=== PATIENT | male | born 1950 | race Caucasian/White ===

== ENCOUNTER 2021-05-30 15:15 | Inpatient (IN) | payer MEDICARE, OTHER ==
[~2021-05-30] VITALS: Ht 180.3 cm; Wt 99.8 kg
[2021-05-30] VITALS (9 sets, daily range): BP systolic 134–165; BP diastolic 70–86
[2021-05-30 17:53] LABS: BASO # 0.1 10*3/uL (0.0-0.1); BASO % 0.4 % (0.0-1.0); EOS # 0.1 10*3/uL (0.0-0.4); EOS % 0.8 % (1.0-4.0); HEMATOCRIT 42.8 % (42.0-52.0); LYMPH # 1.7 10*3/uL (1.3-4.4); LYMPH % 12.6 % (27.0-41.0); MEAN CELL VOLUME 90.9 fl (80.0-94.0); MEAN CORPUSCULAR HGB 29.1 pg (27.0-31.0); MEAN PLATELET VOLUME 9.4 fl (9.6-12.3); MONO # 0.8 10*3/uL (0.1-1.0); MONO % 5.8 % (3.0-9.0); NEUT # 10.6 10*3/uL (2.3-7.9); PLATELET COUNT AUTOMATED 240 10*3/uL (130-400); RED BLOOD COUNT 4.71 10*6/uL (4.50-5.90); RED CELL DISTRI WIDTH 12.8 % (0-14.5); WHITE BLOOD COUNT 13.2 10*3/uL (4.8-10.8)
[2021-05-30 18:03] LABS: BUN 25 mg/dl (7-24); CHLORIDE 108 mmol/L (98-107); CREATININE 1.06 mg/dL (0.70-1.30); POTASSIUM 3.5 mmol/L (3.5-5.1); SODIUM 139 mmol/L (136-145)
[2021-05-30] MEDS ORDERED: PROSCAR5 M1 PO (20:26)
[2021-05-30] MEDS ORDERED: PANTOPRAZOLE SO40 MG PO (20:27)
[2021-05-30] MEDS ORDERED: POTASSIUM CHLO20 ME4 PO (20:27)
[2021-05-30] MEDS ORDERED: SIMVASTATIN20 MG PO (20:27)
[2021-05-30] MEDS ORDERED: ZESTORETIC 20-1 EACH PO (20:28)
[2021-05-30] MEDS ORDERED: AMLODIPINE BESYL5 MG PO (20:28)
[2021-05-31] VITALS: BP 130/71
[2021-05-31 06:57] LABS: BASO % 0.4 % (0.0-1.0); EOS # 0.3 10*3/uL (0.0-0.4); EOS % 3.1 % (1.0-4.0); HEMATOCRIT 39.4 % (42.0-52.0); LYMPH # 1.6 10*3/uL (1.3-4.4); LYMPH % 19.6 % (27.0-41.0); MEAN CELL VOLUME 88.1 fl (80.0-94.0); MEAN CORPUSCULAR HGB 28.6 pg (27.0-31.0); MEAN CORPUSCULAR HGB CONC 32.5 g/dl (33.0-37.0); MEAN PLATELET VOLUME 9.5 fl (9.6-12.3); MONO # 0.8 10*3/uL (0.1-1.0); NEUT # 5.6 10*3/uL (2.3-7.9); NEUT % 67.5 % (47.0-73.0); PLATELET COUNT AUTOMATED 211 10*3/uL (130-400); RED BLOOD COUNT 4.47 10*6/uL (4.50-5.90); RED CELL DISTRI WIDTH 13.2 % (0-14.5); WHITE BLOOD COUNT 8.3 10*3/uL (4.8-10.8)
[2021-05-31 07:29] LABS: ALBUMIN 3.4 gm/dl (3.1-4.5); BUN 25 mg/dl (7-24); CHLORIDE 107 mmol/L (98-107); CHOLESTEROL 153 mg/dL (<200); CREATININE 0.89 mg/dL (0.70-1.30); POTASSIUM 3.7 mmol/L (3.5-5.1); SGOT/AST 15 IU/L (3-35); SGPT/ALT 20 U/L (12-78); SODIUM 140 mmol/L (136-145); TRIGLYCERIDES 103 mg/dl (<150)
[2021-05-31 07:36] LABS: ALKALINE PHOSPHATASE 86 U/L (45-117); LDL CHOLESTEROL 92 mg/dL (9-159); TOTAL PROTEIN 6.3 gm/dL (6.4-8.2)
[2021-05-31 08:00] VITALS: BP 140/68
[2021-05-31 08:07] LABS: VITAMIN D, 25-HYDROXY 40.3 ng/mL (30-100)
[2021-05-31] MEDS ORDERED: HYDROCODONE-AC1 EAC1 PO (10:57)
[2021-06-04] MEDS ORDERED: HYDROCODON-ACE1 EAC1 PO (11:11)
== END 2021-05-31 16:00 | disposition home or self-care (01) | DRG 563 ==
LOC: ED 15:15 → EDHOLD 18:20 → 5E 19:03
PROVIDERS: Emergency Medicine; Student in an Organized Health Care Education/Training Program; ADMIT Student in an Organized Health Care Education/Training Program; ATTEND Student in an Organized Health Care Education/Training Program
PROC: 0QSGXZZ Reposition Right Tibia, External Approach (ICD-10-PCS; principal; 2021-05-30)
PROC: 0QSJXZZ Reposition Right Fibula, External Approach (ICD-10-PCS; 2021-05-30)
PROC: [UNRECOGNIZED PROCEDURE] (2021-05-30)
DX: S82.841A Displaced bimalleolar fracture of right lower leg, initial encounter for closed fracture (principal); D72.829 Elevated white blood cell count, unspecified; D64.9 Anemia, unspecified; E87.8 Other disorders of electrolyte and fluid balance, not elsewhere classified; R73.9 Hyperglycemia, unspecified; I10 Essential (primary) hypertension; E78.5 Hyperlipidemia, unspecified; S93.431A Sprain of tibiofibular ligament of right ankle, initial encounter; W18.39XA Other fall on same level, initial encounter; Y93.89 Activity, other specified; Y92.830 Public park as the place of occurrence of the external cause; Y99.8 Other external cause status; Z98.42 Cataract extraction status, left eye; Z87.01 Personal history of pneumonia (recurrent); Z98.41 Cataract extraction status, right eye; Z82.49 Family history of ischemic heart disease and other diseases of the circulatory system; Z83.79 Family history of other diseases of the digestive system; Z79.899 Other long term (current) drug therapy

== ENCOUNTER → 2021-06-04 | Day surgery (SDC) | payer MEDICARE, OTHER ==
[~2021-06-04] VITALS: Ht 180.3 cm; Wt 99.8 kg
[~2021-06-04] MED LIST: AMLODIPINE BESYL5 MG PO; HYDROCODON-ACE1 EAC1 PO; HYDROCODONE-AC1 EAC1 PO; PANTOPRAZOLE SO40 MG PO; POTASSIUM CHLO20 ME4 PO; PROSCAR5 M1 PO; SIMVASTATIN20 MG PO; ZESTORETIC 20-1 EACH PO
[2021-06-04 07:32] VITALS: BP 132/78
[2021-06-04 10:28] VITALS: BP 141/72
[2021-06-04 10:43] VITALS: BP 138/79
[2021-06-04 11:00] VITALS: BP 140/80
[2021-06-04 11:15] VITALS: BP 138/78
[2021-06-04 11:30] VITALS: BP 137/72
== END | disposition home or self-care (01) ==
LOC: SDC 06-01 13:15
PROVIDERS: ATTEND Orthopaedic Surgery
DX: S82.841A Displaced bimalleolar fracture of right lower leg, initial encounter for closed fracture (principal); S93.431A Sprain of tibiofibular ligament of right ankle, initial encounter; I10 Essential (primary) hypertension; E78.5 Hyperlipidemia, unspecified; I25.10 Atherosclerotic heart disease of native coronary artery without angina pectoris; Z98.890 Other specified postprocedural states; Z79.899 Other long term (current) drug therapy; W17.89XA Other fall from one level to another, initial encounter; Y93.89 Activity, other specified; Y92.89 Other specified places as the place of occurrence of the external cause; Y99.8 Other external cause status

== ENCOUNTER → 2021-06-18 | Outpatient (CLI) | payer MEDICARE, OTHER | END | disposition home or self-care (01) | LOC: ORTHO 00:31 | PROVIDERS: ATTEND Orthopaedic Surgery | DX: S82.454D Nondisplaced comminuted fracture of shaft of right fibula, subsequent encounter for closed fracture with routine healing (principal); S82.54XD Nondisplaced fracture of medial malleolus of right tibia, subsequent encounter for closed fracture with routine healing; X58.XXXD Exposure to other specified factors, subsequent encounter ==

== ENCOUNTER → 2021-07-15 | Outpatient (CLI) | payer MEDICARE, OTHER | END | disposition home or self-care (01) | LOC: ORTHO 09:50 | PROVIDERS: ATTEND Nurse Practitioner | DX: S82.841D Displaced bimalleolar fracture of right lower leg, subsequent encounter for closed fracture with routine healing (principal); X58.XXXD Exposure to other specified factors, subsequent encounter ==

== ENCOUNTER → 2021-08-26 | Outpatient (CLI) | payer MEDICARE, OTHER | END | disposition home or self-care (01) | LOC: ORTHO 00:37 | PROVIDERS: ATTEND Orthopaedic Surgery | DX: S82.841D Displaced bimalleolar fracture of right lower leg, subsequent encounter for closed fracture with routine healing (principal); X58.XXXD Exposure to other specified factors, subsequent encounter ==

== ENCOUNTER → 2022-02-24 | Outpatient (CLI) | payer MEDICARE, OTHER | END | disposition home or self-care (01) | LOC: ORTHO 00:14 | PROVIDERS: ATTEND Orthopaedic Surgery | DX: M77.31 Calcaneal spur, right foot (principal); S82.841D Displaced bimalleolar fracture of right lower leg, subsequent encounter for closed fracture with routine healing; X58.XXXD Exposure to other specified factors, subsequent encounter ==